=== PATIENT | male | born 1960 | race Caucasian/White ===

== ENCOUNTER → 2024-12-02 15:54 | Outpatient (REF) | payer BC, SELFPAY | LOC: HWRCS 15:54 | PROVIDERS: ATTENDING PHYSICIAN Internal Medicine Cardiovascular Disease; FAMILY PHYSICIAN Family Medicine | DX: I49.1 Atrial premature depolarization (principal); I25.10 Atherosclerotic heart disease of native coronary artery without angina pectoris; I45.10 Unspecified right bundle-branch block | CPT/HCPCS: 93306 ==

== ENCOUNTER → 2024-12-10 07:34 | Outpatient (REF) | payer BC, SELFPAY | LOC: HWRCS 07:34 | PROVIDERS: ATTENDING PHYSICIAN Internal Medicine Cardiovascular Disease; FAMILY PHYSICIAN Family Medicine | DX: I49.1 Atrial premature depolarization (principal); I25.10 Atherosclerotic heart disease of native coronary artery without angina pectoris; I45.10 Unspecified right bundle-branch block | CPT/HCPCS: 78452; 93017; A9500 ==